=== PATIENT | male | born 1940 ===

== ENCOUNTER 2016-12-24 07:30 | Inpatient (IN) | payer MEDICARE ==
[2016-12-22 12:35] VITALS: BMI 24.7
[2016-12-24] MEDS ORDERED: HEPARIN-NS 5,000 UNITS/500 ML 10,000 UNIT/1,000 ML BAG IV ONE (07:43)
[2016-12-24] MEDS ORDERED: Thrombin Topical 20,000 Intl Units Spray Kit TOP ONE (07:43)
[2016-12-24] MEDS ORDERED: Thrombin Topical 5,000 IU Spray Kit ONE ×3 (07:43→11:47)
[2016-12-24] MEDS ORDERED: ceFAZolin IV 2 gm in Dextrose 1 GM/50 ML BAG IVPB ONE (07:43)
[2016-12-24] MEDS ORDERED: Absorbable Gelatin Sponge Size 12-7 ONE (07:43)
[2016-12-24] MEDS ORDERED: Lidocaine 1% Inj (20ml) ONE (07:44)
[2016-12-24] MEDS ORDERED: Bacitracin 50,000 UNIT in Sodium Chloride 0.9% Irrig 1,000 ML IR SCH (08:30)
[2016-12-24] MEDS ORDERED: Absorbable Gelatin Sponge Size 100 ONE (09:09)
[2016-12-24] MEDS ORDERED: Midazolam 2 MG/2 ML VIAL ONE (10:04)
[2016-12-24] MEDS ORDERED: Propofol 10 mg/ml Inj (20 ML) ONE (10:04)
[2016-12-24] MEDS ORDERED: Lactated Ringer's 1,000 ML IV ONE ×4 (10:20→16:08)
[2016-12-24] MEDS ORDERED: Phenylephrine 10 mg/ml Inj ONE (11:34)
[2016-12-24] MEDS ORDERED: Labetalol 25mg/5ml Syringe IVP PRN (15:02)
[2016-12-24] MEDS ORDERED: HYDROmorphone 0.5 mg/0.5 ml ISec IVP PRN ×2 (15:02→18:00)
[2016-12-24] MEDS ORDERED: Lactated Ringer's 1,000 ML IV SCH (15:15)
--- NOTE | 2016-12-24 15:28 | PCM.SURG1 ---
<Stewart Ruiz - Last Filed: 12/24/16 15:19> Surgeon's Initial Post Op Note - Surgeon's Notes Surgeon: Dr. Donahue, Dr. Mann Drafter Heating And Ventilating: Dr. Ruiz PGY-2, Lucy Jameson OMS-3 Type of Anesthesia: General Endo Pre-Operative Diagnosis: right carotid stenosis Operative Findings: see operative report Post-Operative Diagnosis: see operative report Operation Performed: right carotid endarterectomy Specimen/Specimens Removed: plaque Estimated Blood Loss: EBL {In ML}: 120 Drains Used: No Drains Post-Op Condition: Good Date of Surgery/Procedure: 12/24/16 Time of Surgery/Procedure: 15:29 <Jack Mann - Last Filed: 12/24/16 17:07> Surgeon's Initial Post Op Note - Surgeon's Notes Operation Performed: right carotid endarterectomy with patch angioplasty Specimen/Specimens Removed: atherosclerotic plaque
[2016-12-24] MEDS ORDERED: Nitroglycerin 50mg in D5W 50 MG/250 ML BOTTLE IV SCH (15:45)
[2016-12-24] MEDS ORDERED: Nitroglycerin 2% Ointment Foilpak UD TOP PRN (15:51)
[2016-12-24] MEDS: Lactated Ringer's 1,000 ML IV SCH (17:36)
--- NOTE | 2016-12-24 18:20 | CP.PCM.CON ---
<Katelin Roper - Last Filed: 12/24/16 18:09> History of Present Illness - History of Present Illness History of Present Illness: 76 year old male with past medical history of hypertension, TIA, diabetes, and BPH presents to the ICU s/p right carotid endarterectomy. Patient is seen and examined this afternoon in the ICU and states he has pain at the surgical site. Patient is still drowsy s/p surgery. Patient denies chest pain or shortness of breath. PMD: Dr. Anival James Surgery: Dr. Donahue Medical History: TIA, hypertension, diabetes, BPH Surgical History: cholecystectomy, prostatectomy Medications: MAR Allergies: NKDA Social: , per patient quit smoking 7-8 years ago used to smoke a pack per day and recently started to smoke 1-2 cigarettes every now and then. Review of Systems - Review of Systems Systems not reviewed;Unavailable: Other (Drowsy s/p right carotid endarterectomy ) - Cardiovascular Cardiovascular: absent: Chest Pain, Dyspnea - Respiratory Respiratory: absent: Dyspnea Past Patient History - Past Medical History & Family History Past Medical History?: Yes - Past Social History Smoking Status: Former Smoker - CARDIAC Hx Circulatory Problems: Yes (CAROTID STENOSIS) Hx Hypertension: Yes - PULMONARY Hx Respiratory Disorders: No - NEUROLOGICAL Hx Neurological Disorder: Yes Hx Transient Ischemic Attacks (TIA): Yes (SEPTEMBER 2016) - HEENT Hx Cataracts: Yes (RT EYE) - RENAL Hx Chronic Kidney Disease: Yes Hx Kidney Stones: Yes - ENDOCRINE/METABOLIC Hx Endocrine Disorders: Yes Hx Diabetes Mellitus Type 2: Yes - HEMATOLOGICAL/ONCOLOGICAL Hx Blood Disorders: Yes Hx Cancer: Yes (PROSTATE) - INTEGUMENTARY Hx Dermatological Problems: No - MUSCULOSKELETAL/RHEUMATOLOGICAL Hx Falls: No - GASTROINTESTINAL Hx Gastrointestinal Disorders: Yes Hx Gall Bladder Disease: Yes - GENITOURINARY/GYNECOLOGICAL Hx Genitourinary Disorders: Yes Hx Hematuria: Yes Hx Prostate Cancer: Yes - PSYCHIATRIC Hx Psychophysiologic Disorder: No - SURGICAL HISTORY Hx Surgeries: Yes Hx Cataract Extraction: Yes (RT EYE WITH IOLI) Hx Cholecystectomy: Yes Other/Comment: SUPRAPUBIC PROSTATECTOMY 1987 ? - ANESTHESIA Hx Anesthesia: Yes Hx Anesthesia Reactions: No Hx Malignant Hyperthermia: No Has any member of the family had a problem w/ anesthesia?: (UNKNOWN) Meds Allergies/Adverse Reactions: Allergies Allergy/AdvReac Type Severity Reaction Status Date / Time No Known Allergies Allergy Verified 12/22/16 12:34 - Medications Medications: Current Medications Aspirin (Ecotrin) 325 mg PO DAILY [facility] Clopidogrel Bisulfate (Plavix) 75 mg PO DAILY [facility] Enalapril Maleate (Vasotec) 20 mg PO DAILY [facility] Famotidine (Pepcid) 20 mg PO DAILY [facility] Glimepiride (Amaryl) 1 mg PO BID [facility] Hydromorphone HCl (Dilaudid) 0.5 mg IVP Q3H PRN PRN Reason: Pain, moderate (4-7) Cefazolin Sodium 500 mg/ (Sodium Chloride) 100 mls @ 100 mls/hr IVPB Q8H [facility] Stop: 12/25/16 10:59 Last Admin: 12/24/16 17:37 Dose: 100 mls/hr Lactated Ringer's (Lactated Ringer's) 1,000 mls @ 80 mls/hr IV .[id number] [facility] Last Admin: 12/24/16 17:36 Dose: 80 mls/hr Insulin Human Regular (Novolin R) 0 unit SC ACHS [facility] PRN Reason: Protocol Labetalol HCl (Trandate) 5 mg IVP Q5M PRN PRN Reason: Systolic Blood Pressure Last Admin: 12/24/16 17:46 Dose: 5 mg Metformin HCl (Glucophage) 1,000 mg PO BID [facility] Metoprolol Tartrate (Lopressor) 100 mg PO DAILY [facility] Nitroglycerin (Nitro-Bid 2% Oint) 1 ea TOP Q8H PRN PRN Reason: hypertension Rosuvastatin Calcium (Crestor) 20 mg PO [facility] Physical Exam - Constitutional Appears: No Acute Distress - Head Exam Head Exam: ATRAUMATIC, NORMAL INSPECTION - Eye Exam Eye Exam: Normal appearance - ENT Exam ENT Exam: Mucous Membranes Moist - Neck Exam Neck exam: Positive for: Tenderness (surgical site s/p right carotid endarterectomy.) - Respiratory Exam Respiratory Exam: Clear to Auscultation Bilateral, NORMAL BREATHING PATTERN. absent: Rales - Cardiovascular Exam Cardiovascular Exam: REGULAR RHYTHM, RRR, +S1, +S2 - GI/Abdominal Exam GI & Abdominal Exam: Normal Bowel Sounds, Soft. absent: Tenderness - Extremities Exam Extremities exam: Positive for: normal inspection, pedal pulses present. Negative for: calf tenderness, pedal edema, tenderness - Neurological Exam Neurological exam: Alert (drowsy), Oriented x3 - Skin Skin Exam: Normal Color Results - Vital Signs Recent Vital Signs: Last Vital Signs Temp 98 F 12/24/16 17:45 Pulse 93 H 12/24/16 17:45 Resp 15 12/24/16 17:45 BP 150/65 12/24/16 17:45 Pulse Ox 98 12/24/16 17:45 - Labs Labs: Laboratory Results - last 24 hr 12/24/16 12/24/16 07:54 17:36 POC Glucose (mg/dL) 144 H 200 H Assessment & Plan (1) Postop carotid endarterectomy surveillance, encounter for Assessment and Plan: 76 year old male with past medical history of hypertension, TIA, diabetes, and BPH presents to the ICU s/p right carotid endarterectomy. Neuro: - Alert but drowsy - Hydromorphone 0.5mg IVP Q3H PRN for pain - Oriented x3 Pulm: - No acute issues CV: - s/p right carotid endarterectomy 12/24 - Aspirin 325mg PO daily - Plavix 75mg PO daily - Enalapril 20mg PO daily - Glimepiride 1mg PO BID - Labetalol 5mg IVP Q5M PRN - Metoprolol Tartrate 100mg PO daily - Rosuvastatin 20mg PO HS - Nitroglycerin 2% 1 each TOP Q8H PRN - Hydromorphone 0.5mg IVP Q3H PRN for pain Hem: - No acute issues Renal: - Garcia in place Endo: - Hx Diabetes - Accuchecks - ISS GI: - Heart Healthy Diet ID: - No acute issues DVT proph - SCDs, Plavix GI proph - Pepcid 20mg daily Code status - full code Case discussed with Dr. Saadia Roper PGY-1 Status: Acute <Kamar Zee - Last Filed: 12/24/16 18:35> Meds - Medications Medications: Current Medications Aspirin (Ecotrin) 325 mg PO DAILY [facility] Clopidogrel Bisulfate (Plavix) 75 mg PO DAILY [facility] Enalapril Maleate (Vasotec) 20 mg PO DAILY [facility] Famotidine (Pepcid) 20 mg PO DAILY [facility] Last Admin: 12/24/16 18:10 Dose: 20 mg Glimepiride (Amaryl) 1 mg PO BID [facility] Hydromorphone HCl (Dilaudid) 0.5 mg IVP Q3H PRN PRN Reason: Pain, moderate (4-7) Cefazolin Sodium 500 mg/ (Sodium Chloride) 100 mls @ 100 mls/hr IVPB Q8H [facility] Stop: 12/25/16 10:59 Last Admin: 12/24/16 17:37 Dose: 100 mls/hr Lactated Ringer's (Lactated Ringer's) 1,000 mls @ 80 mls/hr IV .[id number] [facility] Last Admin: 12/24/16 17:36 Dose: 80 mls/hr Insulin Human Regular (Novolin R) 0 unit SC ACHS [facility] PRN Reason: Protocol Labetalol HCl (Trandate) 5 mg IVP Q5M PRN PRN Reason: Systolic Blood Pressure Last Admin: 12/24/16 17:46 Dose: 5 mg Metoprolol Tartrate (Lopressor) 100 mg PO DAILY [facility] Nitroglycerin (Nitro-Bid 2% Oint) 1 ea TOP Q8H PRN PRN Reason: hypertension Rosuvastatin Calcium (Crestor) 20 mg PO HS [facility] Results - Vital Signs Recent Vital Signs: Last Vital Signs Temp 98 F 12/24/16 18:15 Pulse 92 H 12/24/16 18:15 Resp 15 12/24/16 18:15 BP 149/73 12/24/16 18:15 Pulse Ox 98 12/24/16 18:15 - Labs Labs: Laboratory Results - last 24 hr 12/24/16 12/24/16 07:54 17:36 POC Glucose (mg/dL) 144 H 200 H Attending/Attestation - Attestation I have personally seen and examined this patient.: Yes I have fully participated in the care of the patient.: Yes I have reviewed all pertinent clinical information: Yes Notes (Text): 12/24/16 18:34 I have seen and examined the patient. Medical records, lab studies, and imaging were reviewed by me and a management plan was formulated on multidisciplinary rounds with resident Dr. Roper. I agree with their above documented assessment and plan. Patient s/p right CEA, ICU post-op monitoring, neuro-checks, BP control - will maintain SBP 100-150. Critical Care Time 35 minutes. Multi-disciplinary rounds were performed with house staff, nursing, speech therapy, respiratory therapy, pharmacy and nutrition with integrated input from the primary team/attending and other consulting services. The documented time is cumulative and includes review of patient data/exams/labs/chart review and examination of the patient on rounds and throughout the day; time is exclusive of any procedures or teaching time.
[2016-12-24] MEDS: (Novolin R) Insulin Human Regular 100 units/ml vial SC SCH (21:37)
[2016-12-24] MEDS: HYDROmorphone 0.5 mg/0.5 ml ISec IVP PRN (23:26)
[2016-12-25] MEDS: Lactated Ringer's 1,000 ML IV SCH ×2 (05:10→18:47)
[2016-12-25 06:39] LABS: BASO % 0.5 % (0.0-2.0); EOS % 0.1 % (0.0-4.0); HEMOGLOBIN 9.9 g/dL (12.0-18.0); LYMPH % 13.4 % (20.0-40.0); MEAN CELL VOLUME 76.6 fL (80.0-94.0); MEAN CORPUSCULAR HEMOGLOBIN 24.1 pg (27.0-31.0); MEAN CORPUSCULAR HGB CONC 31.5 g/dL (33.0-37.0); MEAN PLATELET VOLUME 9.3 fL (7.2-11.7); MONO # 0.8 K/uL (0.0-0.8); MONO % 10.7 % (0.0-10.0); NEUT # 5.7 K/uL (1.8-7.0); NEUT % 75.3 % (50.0-75.0); RBC 4.11 Mil/uL (4.40-5.90); RED CELL DISTRIBUTION WIDTH 14.5 % (11.5-14.5); WHITE BLOOD COUNT 7.5 K/uL (4.8-10.8)
[2016-12-25 07:06] LABS: ALB/GLOB RATIO 1.2 (1.0-2.1); ALBUMIN 3.4 g/dL (3.5-5.0); ALT/SGPT 26 U/L (21-72); AST/SGOT 16 U/L (17-59); BLOOD UREA NITROGEN 16 mg/dL (9-20); GFR AFRICAN-AMERICAN > 60; GFR NON-AFRICAN AMERICAN > 60; MAGNESIUM 1.2 mg/dL (1.6-2.3)
[2016-12-25] MEDS: HYDROmorphone 0.5 mg/0.5 ml ISec IVP PRN ×2 (08:05→15:06)
[2016-12-25] MEDS: (Novolin R) Insulin Human Regular 100 units/ml vial SC SCH ×4 (08:06→22:14)
[2016-12-25] MEDS ORDERED: Magnesium Sulfate 1 gm in D5W 1 GM/100 ML BAG IVPB ONE (09:00)
[2016-12-25] MEDS: Aspirin 325 mg EC Tablets PO SCH (09:58)
[2016-12-25] MEDS ORDERED: guaiFENesin 600 mg ER Tab PO SCH (10:00)
--- NOTE | 2016-12-25 11:50 | CP.PCM.PN ---
Subjective - Date & Time of Evaluation Date of Evaluation: 12/25/16 Time of Evaluation: 07:00 - Subjective Subjective: Patient seen and examined this morning. Given nitropaste x1 over night. Patient complaining of difficulty with swallowing solid food, however, patient is able to swallow liquids fine. Patient complaining of sore throat. AAOx3. Objective - Vital Signs/Intake and Output Vital Signs (last 24 hours): Temp Pulse Resp BP Pulse Ox 98.4 F 69 14 113/60 98 12/25/16 08:00 12/25/16 11:26 12/25/16 11:26 12/25/16 11:26 12/25/16 11:26 Intake and Output: 12/25/16 12/25/16 06:59 18:59 Intake Total 980 490 Output Total 925 510 Balance 55 -20 - Medications Medications: Current Medications Aspirin (Ecotrin) 325 mg PO DAILY [facility] Last Admin: 12/25/16 09:58 Dose: 325 mg Clopidogrel Bisulfate (Plavix) 75 mg PO DAILY [facility] Last Admin: 12/25/16 09:58 Dose: 75 mg Enalapril Maleate (Vasotec) 20 mg PO DAILY [facility] Last Admin: 12/25/16 09:58 Dose: 20 mg Famotidine (Pepcid) 20 mg PO DAILY [facility] Last Admin: 12/25/16 09:58 Dose: 20 mg Glimepiride (Amaryl) 1 mg PO BID [facility] Last Admin: 12/25/16 09:58 Dose: 1 mg Guaifenesin (Mucinex La) 600 mg PO Q12 [facility] Last Admin: 12/25/16 09:59 Dose: 600 mg Hydromorphone HCl (Dilaudid) 0.5 mg IVP Q3H PRN PRN Reason: Pain, moderate (4-7) Last Admin: 12/25/16 08:05 Dose: 0.5 mg Lactated Ringer's (Lactated Ringer's) 1,000 mls @ 80 mls/hr IV .[id number] [facility] Last Admin: 12/25/16 05:10 Dose: 80 mls/hr Insulin Human Regular (Novolin R) 0 unit SC ACHS [facility] PRN Reason: Protocol Last Admin: 12/25/16 08:06 Dose: 2 unit Labetalol HCl (Trandate) 5 mg IVP Q5M PRN PRN Reason: Systolic Blood Pressure Last Admin: 12/24/16 17:46 Dose: 5 mg Metoprolol Tartrate (Lopressor) 100 mg PO DAILY [facility] Last Admin: 12/25/16 09:59 Dose: 100 mg Nitroglycerin (Nitro-Bid 2% Oint) 1 ea TOP Q8H PRN PRN Reason: hypertension Last Admin: 12/24/16 21:41 Dose: 1 ea Rosuvastatin Calcium (Crestor) 20 mg PO HS [facility] Last Admin: 12/24/16 21:48 Dose: 20 mg - Labs Labs: 12/25/16 06:35 12/25/16 06:35 - Constitutional Appears: No Acute Distress - Head Exam Head Exam: NORMOCEPHALIC - Eye Exam Eye Exam: Normal appearance - ENT Exam ENT Exam: Mucous Membranes Moist - Neck Exam Additional comments: mild edema on site of surgical incision - Respiratory Exam Respiratory Exam: NORMAL BREATHING PATTERN - Cardiovascular Exam Cardiovascular Exam: +S1, +S2 - GI/Abdominal Exam GI & Abdominal Exam: Soft - Neurological Exam Neurological Exam: Alert, Awake, Oriented x3 - Skin Skin Exam: Dry, Warm Assessment and Plan - Assessment and Plan (Free Text) Assessment: 76M s/p Right CEA POD#1 -Pureed diet -Keep surgical incision site clean/dry -Monitor patient's swallowing function -C/w Analgesia -D/w Dr. Donahue
[2016-12-25] MEDS: guaiFENesin 200 mg/10 ml Syrup UD PO PRN (22:57)
[2016-12-26] MEDS: Lactated Ringer's 1,000 ML IV SCH (06:14)
[2016-12-26] MEDS: guaiFENesin 200 mg/10 ml Syrup UD PO PRN (06:15)
[2016-12-26] MEDS: (Novolin R) Insulin Human Regular 100 units/ml vial SC SCH ×2 (08:35→11:36)
[2016-12-26] MEDS: Aspirin 325 mg EC Tablets PO SCH (09:55)
[2016-12-26 10:03] LABS: HEMOGLOBIN 10.3 g/dL (12.0-18.0); MEAN CELL VOLUME 77.4 fL (80.0-94.0); MEAN CORPUSCULAR HEMOGLOBIN 24.3 pg (27.0-31.0); MEAN CORPUSCULAR HGB CONC 31.5 g/dL (33.0-37.0); MEAN PLATELET VOLUME 9.5 fL (7.2-11.7); RBC 4.22 Mil/uL (4.40-5.90); RED CELL DISTRIBUTION WIDTH 14.7 % (11.5-14.5); WHITE BLOOD COUNT 7.5 K/uL (4.8-10.8)
[2016-12-26 10:12] LABS: BLOOD UREA NITROGEN 11 mg/dL (9-20); GFR AFRICAN-AMERICAN > 60; GFR NON-AFRICAN AMERICAN > 60
[2016-12-26 10:13] LABS: CALCIUM 8.5 mg/dl (8.6-10.4); MAGNESIUM 1.5 mg/dL (1.6-2.3)
--- NOTE | 2016-12-26 12:22 | CP.PCM.PN ---
Subjective - Date & Time of Evaluation Date of Evaluation: 12/26/16 Time of Evaluation: 07:30 Objective - Vital Signs/Intake and Output Vital Signs (last 24 hours): Temp Pulse Resp BP Pulse Ox 98.1 F 89 16 131/77 96 12/26/16 08:00 12/26/16 08:00 12/26/16 08:00 12/26/16 09:55 12/26/16 08:00 Intake and Output: 12/26/16 12/26/16 06:59 18:59 Intake Total 1290 Output Total 3300 -2009 - Medications Medications: Current Medications Aspirin (Ecotrin) 325 mg PO DAILY [facility] Last Admin: 12/26/16 09:55 Dose: 325 mg Clopidogrel Bisulfate (Plavix) 75 mg PO DAILY [facility] Last Admin: 12/26/16 09:55 Dose: 75 mg Enalapril Maleate (Vasotec) 20 mg PO DAILY [facility] Last Admin: 12/26/16 09:55 Dose: 20 mg Famotidine (Pepcid) 20 mg PO DAILY [facility] Last Admin: 12/26/16 09:55 Dose: 20 mg Glimepiride (Amaryl) 1 mg PO BID [facility] Last Admin: 12/26/16 09:56 Dose: 1 mg Guaifenesin (Robitussin) 200 mg PO Q4H PRN PRN Reason: Cough and congestion Last Admin: 12/26/16 06:15 Dose: 200 mg Hydromorphone HCl (Dilaudid) 0.5 mg IVP Q3H PRN PRN Reason: Pain, moderate (4-7) Last Admin: 12/25/16 15:06 Dose: 0.5 mg Lactated Ringer's (Lactated Ringer's) 1,000 mls @ 80 mls/hr IV .[id number] [facility] Last Admin: 12/26/16 06:14 Dose: 80 mls/hr Insulin Human Regular (Novolin R) 0 unit SC ACHS [facility] PRN Reason: Protocol Last Admin: 12/26/16 11:36 Dose: 1 unit Labetalol HCl (Trandate) 5 mg IVP Q5M PRN PRN Reason: Systolic Blood Pressure Last Admin: 12/24/16 17:46 Dose: 5 mg Metoprolol Tartrate (Lopressor) 100 mg PO DAILY [facility] Last Admin: 12/26/16 09:55 Dose: 100 mg Nitroglycerin (Nitro-Bid 2% Oint) 1 ea TOP Q8H PRN PRN Reason: hypertension Last Admin: 12/24/16 21:41 Dose: 1 ea Rosuvastatin Calcium (Crestor) 20 mg PO HS [facility] Last Admin: 12/25/16 22:57 Dose: 20 mg - Labs Labs: 12/26/16 09:55 12/26/16 09:55
--- NOTE | 2016-12-26 12:32 | CP.PCM.DIS ---
Provider - Provider Date of Admission: 12/24/16 07:30 Attending physician: Rita Donahue MD Time Spent in preparation of Discharge (in minutes): 30 Hospital Course - Lab Results Lab Results: Micro Results 12/24/16 Unknown Nose MRSA Culture (Admit) - Final MRSA NOT DETECTED Most Recent Lab Values WBC 7.5 K/uL (4.8-10.8) 12/26/16 09:55 RBC 4.22 Mil/uL (4.40-5.90) L 12/26/16 09:55 Hgb 10.3 g/dL (12.0-18.0) L 12/26/16 09:55 Hct 32.6 % (35.0-51.0) L 12/26/16 09:55 MCV 77.4 fL (80.0-94.0) L 12/26/16 09:55 MCH 24.3 pg (27.0-31.0) L 12/26/16 09:55 MCHC 31.5 g/dL (33.0-37.0) L 12/26/16 09:55 RDW 14.7 % (11.5-14.5) H 12/26/16 09:55 Plt Count 168 K/uL (130-400) 12/26/16 09:55 MPV 9.5 fL (7.2-11.7) 12/26/16 09:55 Neut % (Auto) 75.3 % (50.0-75.0) H 12/25/16 06:35 Lymph % (Auto) 13.4 % (20.0-40.0) L 12/25/16 06:35 Hardy % (Auto) 10.7 % (0.0-10.0) H 12/25/16 06:35 Eos % (Auto) 0.1 % (0.0-4.0) 12/25/16 06:35 Baso % (Auto) 0.5 % (0.0-2.0) 12/25/16 06:35 Neut # 5.7 K/uL (1.8-7.0) 12/25/16 06:35 Lymph # 1.0 K/uL (1.0-4.3) 12/25/16 06:35 Hardy # 0.8 K/uL (0.0-0.8) 12/25/16 06:35 Eos # 0.0 K/uL (0.0-0.7) 12/25/16 06:35 Baso # 0.0 K/uL (0.0-0.2) 12/25/16 06:35 Sodium 138 mmol/L (132-148) 12/26/16 09:55 Potassium 3.7 mmol/L (3.6-5.2) 12/26/16 09:55 Chloride 100 mmol/L (98-107) 12/26/16 09:55 Carbon Dioxide 28 mmol/L (22-30) 12/26/16 09:55 Anion Gap 14 (10-20) 12/26/16 09:55 BUN 11 mg/dL (9-20) 12/26/16 09:55 Creatinine 0.8 MG/DL (0.8-1.5) 12/26/16 09:55 Est GFR ( Amer) > 60 12/26/16 09:55 Est GFR (Non-Af Amer) > 60 12/26/16 09:55 POC Glucose (mg/dL) 193 mg/dL (65-110) H 12/26/16 11:20 Random Glucose 166 mg/dL (75-110) H 12/26/16 09:55 Calcium 8.5 mg/dl (8.6-10.4) L 12/26/16 09:55 Phosphorus 3.6 mg/dL (2.5-4.5) 12/25/16 06:35 Magnesium 1.5 mg/dL (1.6-2.3) L 12/26/16 09:55 Total Bilirubin 0.8 mg/dL (0.2-1.3) 12/25/16 06:35 AST 16 U/L (17-59) L 12/25/16 06:35 ALT 26 U/L (21-72) 12/25/16 06:35 Alkaline Phosphatase 54 U/L (38-126) 12/25/16 06:35 Total Protein 6.3 g/dL (6.3-8.3) 12/25/16 06:35 Albumin 3.4 g/dL (3.5-5.0) L 12/25/16 06:35 Globulin 2.9 gm/dL (2.2-3.9) 12/25/16 06:35 Albumin/Globulin Ratio 1.2 (1.0-2.1) 12/25/16 06:35 - Hospital Course Hospital Course: Patient is a 76 y/o M who underwent a right carotid endarterectomy on 12/24/16 by vascular surgeons, Drs. Donahue and Johnathan. Patient tolerated the procedure well with no complications, was monitored in the ICU for 2 days afterwards, with stable vitals and minimal pain, able to ambulate well. Patient complained of some right mouth droop and inability to clear his throat after surgery but was cleared for thin liquid diet by speech therapist. Patient was able to tolerate substantial amounts of his liquid diet, and felt comfortable returning to his home with close follow up with Dr. Donahue and continuing to take his home anti-coagulants. Patient was discharged on POD2 For full hospital course, see chart Discharge Exam - Head Exam Head Exam: ATRAUMATIC, NORMOCEPHALIC - Eye Exam Eye Exam: Normal appearance. absent: Conjunctival injection, Scleral icterus - ENT Exam ENT Exam: Mucous Membranes Moist, Normal Oropharynx - Neck Exam Additional comments: Incision along the right anterior neck well approximated, steristrips in the superior and inferior poles c/d/i. Small area of subcutaneous firmness at the superior pole suspicious for small hematoma with no fluctuance, pulsing, bleeding, or discharge - Respiratory Exam Respiratory Exam: NORMAL BREATHING PATTERN. absent: Accessory Muscle Use, UNREMARKABLE - Cardiovascular Exam Cardiovascular Exam: RRR - GI/Abdominal Exam GI & Abdominal Exam: Soft. absent: Distended - Extremities Exam Extremities exam: pedal pulses present Additional comments: upper extremity muscle strength 5/5 BL - Neurological Exam Neurological exam: Alert, Motor Sensory Deficit (deficit in CN XII on the right with deviation of tongue to the right with extrusion, mild slurring of speech), Oriented x3 - Psychiatric Exam Psychiatric exam: Normal Affect, Normal Mood - Skin Skin Exam: Dry, Normal Color, Warm Discharge Plan - Follow Up Plan Condition: GOOD Disposition: HOME/ ROUTINE Instructions: Cigarette Smoking and Your Health (GEN), Carotid Endarterectomy ( DC) Additional Instructions: Call Dr. Donahue's office to make a follow up appointment in 1 week Stay hydrated/nourished, call Dr. Donahue's office or return to the ER if patient has difficulty with choking while eating Leave white tape on until you see Dr. Donahue Resume home medications Return to the ER for fever >100.4, very high or very low blood pressure, drainage from the incision site, or any other concerning symptoms Referrals: Rita Donahue MD [Medical Doctor] - Clinical Quality Measures - CQM - Stroke Antithrombotic Prescribed: Yes - CQM - VTE Did patient receive overlap therapy during hosptialization?: Yes
[2016-12-26 13:41] VITALS: BP 154/92; PULSE 75; RESP 18; TEMP 97.7; O2SAT 95
--- NOTE | 2016-12-29 13:45 | OP ---
PROCEDURE DATE: 12/24/2016 PREOPERATIVE DIAGNOSIS: Right carotid artery stenosis. POSTOPERATIVE DIAGNOSIS: Right carotid artery stenosis. PROCEDURE PERFORMED: Right carotid artery endarterectomy. SURGEON: Rita Donahue MD HOOKER INSPECTOR: . TYPE OF ANESTHESIA: General endotracheal anesthesia. INDICATIONS: Mr. Sarkar is a 76-year-old male patient presented with sudden weakness and numbness in his left upper extremity. The patient is seen by Dr. Chicas, neurology and for carotid artery stenosis and severe stenosis on the right side. The patient was about another TIA and I saw the patient, recommended surgical help and explained to him the risks and benefits of the procedure and the risk of the stroke he still has he went back to Dr. Chicas and after that he never and came back with making decision to proceed with the surgery. I explained to the patient again the risks and benefits and he agreed to proceed with the surgery. I met his . DESCRIPTION OF PROCEDURE: The patient taken to the operating room, placed in supine position. He was prepped and draped in the usual sterile fashion. General anesthesia was given for him. I started incision from the anterior border of the sternocleidomastoid muscle on the right side and incision was carried down to the subcutaneous tissue down to the platysma . We started doing carotid markings, started dissecting the carotid artery and the internal jugular vein down to the common carotid artery and and blunting dissection most to the bifurcation to identify the patient veins and wed ligated the facial vein regions and we cut the . We continued dissection up to identify the hypoglossal nerve very high close to the digastric and identifying the hypoglossal nerve and it was small venous branch at the area of the bifurcation dissected internal and external. applied to the external and around the internal. Second was given to the patient and artery after 5 minutes and quickly opened the arch in the both #12. Then we checked the flow using Doppler and using the . After that we started dissecting the wall of the artery between the wall of the arch. forceps and . The at the end of the 0 Prolene to prevent any . The proximate end of the plaquing of the common carotid artery was cut clean and irrigated the to prevent the . No bleeding was noted from it. We obtained patch and we secured the patch to the carotid artery using 6-0 Prolene. Before the we got the shunt out and common iliac artery. After that we closed the . The artery was inspection. We allowed the and after that we checked the Doppler and checked the flow in the internal and external carotid and common carotid with a good flow with no obstruction and inspected and after that we irrigated solution and good hemostasis. We closed the wounds in layer using 3-0 Vicryl and skin 0 Vicryl and the skin was closed . No complications. The patient tolerated the procedure well. and follow commands . He was transferred to the recovery room. No complications during the procedure. Rita Donahue MD
== END 2016-12-26 15:15 | disposition home or self-care (01) | DRG 39 ==
LOC: C.9S 07:30 → C.9I 16:31
PROVIDERS: ADMIT Surgery; ATTEND Surgery
PROC: 03UK0JZ Supplement Right Internal Carotid Artery with Synthetic Substitute, Open Approach (ICD-10-PCS; 2016-12-24)
PROC: 03CK0Z6 (ICD-10-PCS; principal; 2016-12-24 10:00)
DX: I65.21 Occlusion and stenosis of right carotid artery (principal); E11.22 Type 2 diabetes mellitus with diabetic chronic kidney disease; I12.9 Hypertensive chronic kidney disease with stage 1 through stage 4 chronic kidney disease, or unspecified chronic kidney disease; N18.9 Chronic kidney disease, unspecified; N40.0 Benign prostatic hyperplasia without lower urinary tract symptoms; Z96.1 Presence of intraocular lens; Z85.46 Personal history of malignant neoplasm of prostate; Z86.73 Personal history of transient ischemic attack (TIA), and cerebral infarction without residual deficits; Z98.41 Cataract extraction status, right eye; Z87.442 Personal history of urinary calculi; Z90.49 Acquired absence of other specified parts of digestive tract